=== PATIENT | male | born 1975 | race Caucasian/White ===

== ENCOUNTER → 2016-10-11 | Outpatient (CLI) | payer MEDICARE, MEDICAID ==
[~2016-10-11] MED LIST: CELE20TA PO; TRAZ50TA4 PO
--- NOTE | 2016-10-11 17:15 | REP ---
THORACIC SPINE SERIES: Five views of the thoracic spine are performed in the AP and lateral projections. There is no compression fracture. There is moderate diffuse spurring. There is mild disc space narrowing and subchondral sclerosis at all levels. Posterior elements appear intact. IMPRESSION: Moderate diffuse degenerative changes appearing similar to prior exam of 06/25/2016. Signed by Lloyd Morales MD 10/12/2016 05:35 P
--- NOTE | 2016-10-11 17:17 | REP ---
LUMBAR SPINE, SEVEN VIEWS: HISTORY: Back pain. COMPARISON: 06/25/2016 There is no acute fracture. Flexion and extension views are limited. There is no subluxation. The L3-4 and L4-5 intervertebral discs are decreased in height consistent with disc degeneration. Osteophytes are present on L1 through L4. The facet joints are normal in appearance. There is minimal scoliosis of the lower thoracic and upper lumbar spine convex to the left. IMPRESSION: Degenerative change as described above. Signed by Panfilo Combs MD 10/12/2016 08:59 A
== END ==
LOC: M LAB 15:41
PROVIDERS: ATTEND Physician Assistant Medical
DX: M54.6 Pain in thoracic spine (principal); M54.5 Low back pain; E66.9 Obesity, unspecified; E55.9 Vitamin D deficiency, unspecified; R73.9 Hyperglycemia, unspecified; E78.5 Hyperlipidemia, unspecified

== ENCOUNTER → 2016-10-12 | Outpatient (CLI) | payer MEDICARE, MEDICAID ==
[2016-10-12 08:21] LABS: ALBUMIN 4.2 GM/DL (3.2-5.2); ALBUMIN/GLOBULIN RATIO 1.45 (1.00-1.93); ALKALINE PHOSPHATASE 71 U/L (45-117); ALT/SGPT 59 U/L (12-78); ANION GAP 6 MEQ/L (8-16); AST/SGOT 28 U/L (15-37); BILIRUBIN,TOTAL 0.9 MG/DL (0.2-1.0); BLOOD UREA NITROGEN 18 MG/DL (7-18); CALCIUM LEVEL 8.4 MG/DL (8.5-10.1); CARBON DIOXIDE LEVEL 28 MEQ/L (21-32); CHLORIDE LEVEL 107 MEQ/L (98-107); CHOLESTEROL LEVEL 169 MG/DL (<200); CREATININE FOR GFR 0.69 MG/DL (0.70-1.30); GLOMERULAR FILTRATION RATE > 60.0 (>60); GLUCOSE, FASTING 104 MG/DL (70-105); POTASSIUM SERUM 4.2 MEQ/L (3.5-5.1); SODIUM LEVEL 141 MEQ/L (136-145); TOTAL PROTEIN 7.1 GM/DL (6.4-8.2); TRIGLYCERIDES LEVEL 146 MG/DL (<150)
== END ==
LOC: M LAB 07:17
PROVIDERS: ATTEND Physician Assistant Medical
DX: R73.9 Hyperglycemia, unspecified (principal); E66.9 Obesity, unspecified; E78.5 Hyperlipidemia, unspecified; E55.9 Vitamin D deficiency, unspecified

== ENCOUNTER 2016-11-11 17:21 | Emergency (ER) | payer MEDICARE, MEDICAID ==
[~2016-11-11] VITALS: Ht 165.1 cm; Wt 134.7 kg
[2016-11-11] MEDS ORDERED: ACAM0.05 PO (17:45)
[2016-11-11] MEDS ORDERED: vitamin d (17:47)
[2016-11-11] MEDS ORDERED: Vicodin (17:47)
[2016-11-11] MEDS ORDERED: NAPROXEN 250 MG TAB PO ONE (18:30)
[2016-11-11] MEDS ORDERED: ADACEL/BOOSTRIX VACCINE (DIPHTH/PERTUSS/ACELL/TETANUS)0.5ML SYR (90715) IM ONE (18:30)
[2016-11-11] MEDS ORDERED: AUGMENTIN 875 MG TAB PO ONE (18:30)
[2016-11-11] MEDS ORDERED: NAPR500T PO (18:31)
[2016-11-11] MEDS ORDERED: AUGM875T27 PO (18:31)
[2016-11-11 18:52] VITALS: BP 143/78
== END 2016-11-11 18:54 | disposition home or self-care (01) ==
LOC: M ED 18:20
DX: S50.871A Other superficial bite of right forearm, initial encounter (principal); W54.0XXA Bitten by dog, initial encounter; Y92.009 Unspecified place in unspecified non-institutional (private) residence as the place of occurrence of the external cause; Y93.89 Activity, other specified; Y99.8 Other external cause status; F32.9 Major depressive disorder, single episode, unspecified; Z87.891 Personal history of nicotine dependence; Z79.899 Other long term (current) drug therapy

== ENCOUNTER → 2017-01-24 | Outpatient (REF) | payer MEDICARE, MEDICAID ==
[~2017-01-24] MED LIST changes: +ACAM0.05 PO; +AUGM875T28 PO; +NAPR500T PO; +TRAZ50TA11 PO; -TRAZ50TA4 PO; +Vicodin; +vitamin d
[2017-01-24 15:39] LABS: ANION GAP 13 MEQ/L (8-16); BLOOD UREA NITROGEN 8 MG/DL (7-18); CALCIUM LEVEL 9.2 MG/DL (8.5-10.1); CARBON DIOXIDE LEVEL 19 MEQ/L (21-32); CHLORIDE LEVEL 107 MEQ/L (98-107); CREATININE FOR GFR 0.72 MG/DL (0.70-1.30); GLOMERULAR FILTRATION RATE > 60.0 (>60); GLUCOSE, FASTING 92 MG/DL (70-105); SODIUM LEVEL 139 MEQ/L (136-145)
[2017-01-24 15:45] LABS: POTASSIUM SERUM 4.5 MEQ/L (3.5-5.1)
== END ==
LOC: M LAB REF 13:14
PROVIDERS: ATTEND Nurse Practitioner Family
DX: E55.9 Vitamin D deficiency, unspecified (principal)

== ENCOUNTER → 2017-03-07 | Outpatient (CLI) | payer MEDICARE, MEDICAID ==
[2017-03-07 09:37] LABS: ALBUMIN 3.7 GM/DL (3.2-5.2); ALBUMIN/GLOBULIN RATIO 1.12 (1.00-1.93); ALKALINE PHOSPHATASE 75 U/L (45-117); ALT/SGPT 73 U/L (12-78); AST/SGOT 27 U/L (15-37); BILIRUBIN,DIRECT < 0.1 MG/DL (0.0-0.2); BILIRUBIN,TOTAL 0.3 MG/DL (0.2-1.0)
== END ==
LOC: M LAB 08:13
PROVIDERS: ATTEND Nurse Practitioner Family
DX: F10.20 Alcohol dependence, uncomplicated (principal)

== ENCOUNTER → 2017-06-26 | Outpatient (CLI) | payer MEDICARE, MEDICAID ==
[~2017-06-26] MED LIST changes: +IBUP-1022 PO; +VIVI380I IM
[2017-06-26 11:13] LABS: ALBUMIN 4.3 GM/DL (3.2-5.2); ALBUMIN/GLOBULIN RATIO 1.34 (1.00-1.93); BILIRUBIN,DIRECT 0.3 MG/DL (0.0-0.2); BILIRUBIN,TOTAL 1.5 MG/DL (0.2-1.0); TOTAL PROTEIN 7.5 GM/DL (6.4-8.2)
== END ==
LOC: M LAB 10:29
PROVIDERS: ATTEND Nurse Practitioner Family
DX: F10.20 Alcohol dependence, uncomplicated (principal); Z51.81 Encounter for therapeutic drug level monitoring

== ENCOUNTER 2017-06-29 13:23 | Emergency (ER) | payer MEDICARE, MEDICAID ==
[~2017-06-29] VITALS: Ht 162.6 cm; Wt 133.6 kg
[~2017-06-29 13:23] MED LIST changes: -IBUP-1022 PO; -VIVI380I IM
[2017-06-29] MEDS ORDERED: VIVI380I IM (13:48)
[2017-06-29] MEDS ORDERED: IBUP-1022 PO (15:17)
[2017-06-29] MEDS ORDERED: AUGM875T28 PO (15:17)
[2017-06-29 15:36] VITALS: BP 171/99
== END 2017-06-29 15:37 | disposition home or self-care (01) ==
LOC: M ED 13:23
DX: L60.0 Ingrowing nail (principal)

== ENCOUNTER → 2017-07-30 | Outpatient (REF) | payer MEDICARE, MEDICAID ==
[2017-07-30 14:00] LABS: BASO % 0.4 % (0.0-1.0); EOS % 0.6 % (0.0-3.0); HEMATOCRIT 42.5 % (42.0-52.0); HEMOGLOBIN 14.1 g/dl (14.0-18.0); IMMATURE GRANULOCYTE % 0.4 % (0-0); LYMPH # 1.8 10^3/uL (1.5-4.5); LYMPH % 25.1 % (24.0-44.0); MEAN CORPUSCULAR HEMOGLOBIN 30.9 pg (27.0-33.0); MEAN CORPUSCULAR HGB CONC 33.2 g/dl (32.0-36.5); MEAN CORPUSCULAR VOLUME 93.2 fl (80.0-96.0); MONO # 0.5 10^3/uL (0.0-0.8); MONO % 7.6 % (0.0-5.0); NEUTROPHILS # 4.7 10^3/uL (1.8-7.7); NEUTROPHILS % 65.9 % (36.0-66.0); PLATELET COUNT, AUTOMATED 241 10^3/uL (150-450); RED BLOOD COUNT 4.56 10^6/uL (4.30-6.10); WHITE BLOOD COUNT 7.1 10^3/uL (4.0-10.0)
[2017-07-30 14:29] LABS: ALBUMIN/GLOBULIN RATIO 1.33 (1.00-1.93); ALKALINE PHOSPHATASE 74 U/L (45-117); ALT/SGPT 53 U/L (12-78); ANION GAP 7 MEQ/L (8-16); AST/SGOT 24 U/L (7-37); BILIRUBIN,TOTAL 0.7 MG/DL (0.2-1.0); BLOOD UREA NITROGEN 8 MG/DL (7-18); CALCIUM LEVEL 8.7 MG/DL (8.5-10.1); CARBON DIOXIDE LEVEL 27 MEQ/L (21-32); CHLORIDE LEVEL 107 MEQ/L (98-107); CHOLESTEROL LEVEL 166 MG/DL (<200); CHOLESTEROL RISK RATIO 4.611 (<5); CREATININE FOR GFR 0.74 MG/DL (0.70-1.30); GLOMERULAR FILTRATION RATE > 60.0 (>60); GLUCOSE, FASTING 124 MG/DL (70-100); HDL CHOLESTEROL 36 MG/DL (>40); LDL CHOLESTEROL 103.8 MG/DL (<100); NON-HDL-C 130 MG/DL; SODIUM LEVEL 141 MEQ/L (136-145); TRIGLYCERIDES LEVEL 131 MG/DL (<150)
[2017-07-30 14:49] LABS: ESTIMATED AVERAGE GLUCOSE 134 MG/DL (60-110); HEMOGLOBIN A1c 6.3 %
[2017-07-31 11:38] LABS: HIV 1&2 SCREEN CENTAUR NEGATIVE (NEGATIVE)
[2017-07-31 12:01] LABS: HEPATITIS B SURFACE ANTIBODY NEGATIVE (POSITIVE)
== END ==
LOC: M LAB REF 13:41
DX: R03.0 Elevated blood-pressure reading, without diagnosis of hypertension (principal); R73.03 Prediabetes; E55.9 Vitamin D deficiency, unspecified
CPT/HCPCS: 84443

== ENCOUNTER → 2018-02-21 | Outpatient (CLI) | payer OTHER, MEDICAID, MEDICARE | LOC: M SLEEP 18:51 | DX: G47.30 Sleep apnea, unspecified (principal) | CPT/HCPCS: 95810 ==

== ENCOUNTER → 2018-04-01 | Outpatient (CLI) | payer MEDICARE, OTHER | LOC: M SLEEP 18:46 | DX: G47.33 Obstructive sleep apnea (adult) (pediatric) (principal) | CPT/HCPCS: 95811 ==

== ENCOUNTER 2018-07-18 10:49 | Emergency (ER) | payer MEDICARE, MEDICAID ==
[~2018-07-18] VITALS: Ht 165.1 cm; Wt 135.6 kg
[~2018-07-18 10:49] MED LIST changes: +IBUP-1022 PO; +NAPR-50 PO; -NAPR500T PO; +TRAZ-160 PO; -TRAZ50TA11 PO; +VIVI380I IM
[2018-07-18] MEDS ORDERED: KETOROLAC 30 MG/ML VIAL (J1885) IV ONE (12:45)
[2018-07-18] MEDS ORDERED: NS 1,000 ML IV ONE (12:45)
[2018-07-18 12:59] LABS: BASO # 0.1 10^3/uL (0.0-0.2); BASO % 0.7 % (0.0-1.0); EOS # 0.1 10^3/uL (0.0-0.50); EOS % 0.7 % (0.0-3.0); HEMATOCRIT 46.1 % (42.0-52.0); HEMOGLOBIN 15.4 g/dl (13.5-17.5); LYMPH # 2.6 10^3/uL (1.5-4.5); LYMPH % 29.4 % (24.0-44.0); MEAN CORPUSCULAR HEMOGLOBIN 30.9 pg (27.0-33.0); MEAN CORPUSCULAR HGB CONC 33.4 g/dl (32.0-36.5); MEAN CORPUSCULAR VOLUME 92.6 fl (80.0-96.0); MONO # 0.8 10^3/uL (0.0-0.8); NEUTROPHILS # 5.2 10^3/uL (1.8-7.7); NEUTROPHILS % 59.5 % (36.0-66.0); PLATELET COUNT, AUTOMATED 228 10^3/uL (150-450); RED BLOOD COUNT 4.98 10^6/uL (4.30-6.10); WHITE BLOOD COUNT 8.8 10^3/uL (4.0-10.0)
--- NOTE | 2018-07-18 13:09 | REP ---
CT abdomen and pelvis without IV or oral contrast: History: Right flank pain. Red blood cells on urinalysis. Question kidney stone. No comparison study. CT findings: Pulmonary digital warehouse examiner radiograph shows a normal bowel gas pattern. The lung bases are clear. There is moderate diffuse fatty infiltration of the liver. There are two large calcified gallstones in the gallbladder. Gallbladder is otherwise contracted. The largest stone in the gallbladder measures 21 mm in greatest diameter. No pericholecystic fluid or wall thickening is seen. No biliary ductal dilation is apparent. The pancreas is unremarkable. No hydronephrosis is noted on either side. There is an intrarenal calculus at the upper pole of the right kidney measuring 2 mm in diameter. Neither ureter is dilated. The no bladder calculus is seen. There are 1-2 dystrophic calcifications in the prostate. Seminal vesicles and urinary bladder are unremarkable. No pelvic mass or adenopathy is observed. Small and large bowel loops are unremarkable. Normal appendix is seen in the right lower quadrant. Normal caliber aorta. No bony destructive lesion is seen. Impression: 2 mm intrarenal calculus upper pole right kidney. No hydronephrosis seen. No other urinary tract calculus noted. Calcified gallstones. Fatty infiltration of the liver. Electronically Signed by Van Lima MD 07/18/2018 03:13 P
[2018-07-18 13:23] LABS: ALBUMIN 4.1 GM/DL (3.2-5.2); ALT/SGPT 59 U/L (12-78); AMYLASE 69 U/L (25-115); BILIRUBIN,DIRECT 0.1 MG/DL (0.0-0.2); BILIRUBIN,TOTAL 0.5 MG/DL (0.2-1.0); BLOOD UREA NITROGEN 13 MG/DL (7-18); CALCIUM LEVEL 8.9 MG/DL (8.5-10.1); CARBON DIOXIDE LEVEL 25 MEQ/L (21-32); CHLORIDE LEVEL 106 MEQ/L (98-107); CREATININE FOR GFR 0.75 MG/DL (0.70-1.30); GLOMERULAR FILTRATION RATE > 60.0 (>60); GLUCOSE, FASTING 94 MG/DL (70-100); LIPASE 229 U/L (73-393); POTASSIUM SERUM 4.2 MEQ/L (3.5-5.1); SODIUM LEVEL 139 MEQ/L (136-145); TOTAL PROTEIN 7.3 GM/DL (6.4-8.2)
[2018-07-18] MEDS ORDERED: KETO10TAB PO (14:04)
[2018-07-18 14:11] VITALS: BP 111/68
--- NOTE | 2018-07-18 14:19 | REP ---
RIGHT UPPER QUADRANT ULTRASOUND: 07/18/2018. CLINICAL HISTORY: Right-sided back pain. Gallstones on CT abdomen/pelvis earlier today. COMPARISON: CT, 07/18/2018. FINDINGS: Liver is homogeneous and hyperechoic throughout consistent with diffuse fatty infiltration, as noted on CT. It is difficult to evaluate because of body habitus considerations. No gross mass or biliary dilatation. No obvious ascites. The gallbladder is contracted, but its wall thickness is normal at 2 mm. Echogenic shadowing stones evident with a CUONG sign ([id number]) of a contracted gallbladder filled with stones. There is no pericholecystic fluid. The pancreas is also difficult to evaluate with only limited evaluation due to body habitus considerations as portions seen are somewhat hyperechoic. Common duct is 3.3 mm without a filling defect. The right kidney is 11.3 x 4.7 x 5.3 cm without hydronephrosis or visible stone. IMPRESSION: 1. Diffuse fatty infiltration liver without gross hepatic mass, biliary dilatation, nor adjacent ascites. 2. Gallbladder contracted around multiple calcified gallstones which fill it. No abnormal wall thickening or pericholecystic fluid, however. 3. Common duct 3.3 mm without a filling defect with limited evaluation of the pancreas, those segments seen grossly normal. 4. Right kidney without stone, mass, or hydronephrosis. Electronically Signed by Janak Blanco MD 07/18/2018 05:01 P
== END 2018-07-18 14:29 | disposition home or self-care (01) ==
LOC: M ED 10:49
DX: K80.20 Calculus of gallbladder without cholecystitis without obstruction (principal); N20.0 Calculus of kidney; F33.9 Major depressive disorder, recurrent, unspecified; F10.10 Alcohol abuse, uncomplicated
CPT/HCPCS: 74176; 76705; 80048; 80076; 81001; 82150; 83690; 85025; 96361; 96374; 99284; J1885

== ENCOUNTER 2018-08-05 15:02 | Emergency (ER) | payer MEDICARE, MEDICAID ==
[~2018-08-05] VITALS: Ht 167.6 cm; Wt 139.9 kg
[~2018-08-05 15:02] MED LIST changes: +KETO10TAB PO
[2018-08-05] MEDS ORDERED: IBUP80TA (15:08)
[2018-08-05] MEDS ORDERED: BACL10TA2 (15:08)
[2018-08-05] MEDS ORDERED: LISI10TA4 (15:08)
[2018-08-05] MEDS ORDERED: PANTOPRAZOLE 40MG INJ (PROTONIX) (C9113) IV ONE (16:30)
[2018-08-05 16:55] LABS: BASO # 0.1 10^3/uL (0.0-0.2); BASO % 0.5 % (0.0-1.0); EOS # 0.1 10^3/uL (0.0-0.50); EOS % 0.6 % (0.0-3.0); HEMATOCRIT 42.1 % (42.0-52.0); HEMOGLOBIN 14.1 g/dl (13.5-17.5); LYMPH # 2.9 10^3/uL (1.5-4.5); LYMPH % 29.5 % (24.0-44.0); MEAN CORPUSCULAR HEMOGLOBIN 31.2 pg (27.0-33.0); MEAN CORPUSCULAR HGB CONC 33.5 g/dl (32.0-36.5); MEAN CORPUSCULAR VOLUME 93.1 fl (80.0-96.0); MONO # 0.8 10^3/uL (0.0-0.8); MONO % 8.5 % (0.0-5.0); NEUTROPHILS # 5.8 10^3/uL (1.8-7.7); NEUTROPHILS % 60.2 % (36.0-66.0); PLATELET COUNT, AUTOMATED 239 10^3/uL (150-450); RED BLOOD COUNT 4.52 10^6/uL (4.30-6.10); WHITE BLOOD COUNT 9.7 10^3/uL (4.0-10.0)
[2018-08-05 17:18] LABS: ALBUMIN 4.2 GM/DL (3.2-5.2); ALT/SGPT 51 U/L (12-78); BILIRUBIN,DIRECT 0.2 MG/DL (0.0-0.2); BILIRUBIN,TOTAL 0.6 MG/DL (0.2-1.0); BLOOD UREA NITROGEN 13 MG/DL (7-18); CALCIUM LEVEL 8.8 MG/DL (8.5-10.1); CARBON DIOXIDE LEVEL 28 MEQ/L (21-32); CHLORIDE LEVEL 105 MEQ/L (98-107); CREATININE FOR GFR 0.68 MG/DL (0.70-1.30); GLOMERULAR FILTRATION RATE > 60.0 (>60); GLUCOSE, FASTING 92 MG/DL (70-100); LIPASE 171 U/L (73-393); POTASSIUM SERUM 3.9 MEQ/L (3.5-5.1); SODIUM LEVEL 140 MEQ/L (136-145); TOTAL PROTEIN 7.4 GM/DL (6.4-8.2)
[2018-08-05 17:31] VITALS: BP 135/80
== END 2018-08-05 17:53 | disposition home or self-care (01) ==
LOC: M ED 15:02
DX: K80.70 Calculus of gallbladder and bile duct without cholecystitis without obstruction (principal); I10 Essential (primary) hypertension; F32.9 Major depressive disorder, single episode, unspecified
CPT/HCPCS: 80048; 80076; 81001; 83690; 85025; 96374; 99284; C9113

== ENCOUNTER → 2018-08-18 | Outpatient (REF) | payer MEDICARE, MEDICAID ==
[~2018-08-18] MED LIST changes: +BACL10TA2 PO; +HYDR25TAB PO; +IBUP80TA PO; +LISI10TA4 PO; +TYLE500T78 PO
[2018-08-18 14:05] LABS: BASO % 0.6 % (0.0-1.0); EOS # 0.2 10^3/uL (0.0-0.50); EOS % 2.8 % (0.0-3.0); HEMATOCRIT 45.6 % (42.0-52.0); HEMOGLOBIN 14.7 g/dl (13.5-17.5); LYMPH # 2.8 10^3/uL (1.5-4.5); MEAN CORPUSCULAR HEMOGLOBIN 30.8 pg (27.0-33.0); MEAN CORPUSCULAR HGB CONC 32.2 g/dl (32.0-36.5); MEAN CORPUSCULAR VOLUME 95.6 fl (80.0-96.0); MONO # 0.5 10^3/uL (0.0-0.8); MONO % 7.9 % (0.0-5.0); NEUTROPHILS # 3.1 10^3/uL (1.8-7.7); NEUTROPHILS % 46.4 % (36.0-66.0); PLATELET COUNT, AUTOMATED 241 10^3/uL (150-450); RED BLOOD COUNT 4.77 10^6/uL (4.30-6.10); WHITE BLOOD COUNT 6.7 10^3/uL (4.0-10.0)
[2018-08-18 14:13] LABS: ALBUMIN 4.4 GM/DL (3.2-5.2); ALT/SGPT 43 U/L (12-78); BILIRUBIN,TOTAL 0.4 MG/DL (0.2-1.0); BLOOD UREA NITROGEN 12 MG/DL (7-18); CARBON DIOXIDE LEVEL 29 MEQ/L (21-32); CHLORIDE LEVEL 106 MEQ/L (98-107); CREATININE FOR GFR 0.63 MG/DL (0.70-1.30); GLOMERULAR FILTRATION RATE > 60.0 (>60); GLUCOSE, FASTING 99 MG/DL (70-100); POTASSIUM SERUM 4.4 MEQ/L (3.5-5.1); SODIUM LEVEL 140 MEQ/L (136-145); TOTAL PROTEIN 7.4 GM/DL (6.4-8.2)
[2018-08-18 14:15] LABS: PROTHROMBIN TIME 13.3 SECONDS (12.1-14.4)
== END ==
LOC: M LAB REF 13:39
PROVIDERS: ATTEND Nurse Practitioner Adult Health
DX: Z01.818 Encounter for other preprocedural examination (principal); Z79.01 Long term (current) use of anticoagulants

== ENCOUNTER 2018-08-29 08:07 | Day surgery (SDC) | payer MEDICARE, MEDICAID ==
[~2018-08-29] VITALS: Ht 162.6 cm; Wt 132.0 kg
[2018-08-29] VITALS (8 sets, daily range): BP systolic 138–167; BP diastolic 85–96
[~2018-08-29 08:07] MED LIST changes: +AMPICILLIN SOD/SULBACTAM SOD 3 GM in D5W MINI-BAG PLUS 100 ML IV ONE; +LR 1,000 ML IV SCH; -NAPR-50 PO; +NAPR-837 PO
[2018-08-29] MEDS ORDERED: dexameTHASONE 4 MG/ML 1ML VIAL (J1100) As Ordered ONE (09:49)
[2018-08-29] MEDS ORDERED: PROPOFOL 200 MG/20 ML VIAL As Ordered ONE ×2 (09:49→11:55)
[2018-08-29] MEDS ORDERED: LIDOCAINE 2% INJ 100 MG/5 ML SDV (FOR ANES.) As Ordered ONE (09:49)
[2018-08-29] MEDS ORDERED: ONDANSETRON 4MG/2ML VIAL (J2405) As Ordered ONE (09:49)
[2018-08-29] MEDS ORDERED: ROCURONIUM BROMIDE 50 MG/5 ML VIAL As Ordered ONE (09:49)
[2018-08-29] MEDS ORDERED: fentaNYL 100 MCG/2 ML INJECTION (J3010) As Ordered ONE ×2 (09:50→12:14)
[2018-08-29] MEDS ORDERED: MIDAZOLAM INJ 2 MG/2 ML VIAL (J2250) As Ordered ONE (09:50)
[2018-08-29] MEDS ORDERED: LIDOCAINE 1% SDV INJ 30 ML VIAL As Ordered ONE (10:40)
[2018-08-29] MEDS ORDERED: BUPIVACAINE HCL 0.25% 30 ML VIAL As Ordered ONE (10:41)
[2018-08-29] MEDS ORDERED: KETOROLAC 60 MG/2 ML VIAL (J1885) As Ordered ONE (11:36)
[2018-08-29] MEDS ORDERED: SUGAMMADEX SODIUM 500 MG/5 ML VIAL (BRIDION) As Ordered ONE (11:36)
--- NOTE | 2018-08-29 12:32 | ROOPDOC ---
[facility] Report Of Operation Report of Operation DATE OF PROCEDURE: 08/29/18 PREPROCEDURE DIAGNOSES: Biliary Colic, Cholelithiasis. POSTPROCEDURE DIAGNOSES: same. PROCEDURE: Laparoscopic Cholecystectomy. SURGEON: Stanton Echeverria MD HARM REDUCTION WORKER: MD Dr. Theresa Glez provided assistance with placement of trocars, retraction of the gallbladder to facilitate dissection ANESTHESIA: General Anesthesia. ESTIMATED BLOOD LOSS: Approximately 20 mL. COMPLICATIONS: none. REMARKS: 43 M, morbidly obese with BMI of 50, with intermittent epigastric, right upper quadrant pain believed to be secondary to presence of gallstones causing biliary colic attacks.. PROCEDURE NOTE: enlarged liver, fatty replaced, distended thick walled gallbladder with moderate amount of fatty deposition on the wall.. DESCRIPTION OF PROCEDURE: Patient was given a dose Unasyn 3 g IV preoperatively for prophylaxis. He was brought to the operating room, laid supine on the table, compression boots p laced for DVT prophylaxis. General endotracheal anesthesia started. His abdomen then prepped and draped in usual sterile fashion. Surgical timeout was performed prior to confirm right procedure, right patient identification and other necessary information prior to starting surgery. Entry into the abdomen done through an incision a few centimeters above the umbilical cleft. A Veress needle was inserted with a controlled fashion. CO2 insufflation started to pressure 15 mmHg. Using the same incision a 5 mm V isiport was placed under direct vision laparoscope. The area underneath the insertion site was inspected and no injury found. He was then placed in steep reverse Trendelenburg. His right side was tilted up to further expose the gallbladder. Under direct vision a 11 mm epigastric port and Two 5 mm working ports placed along the right subcostal line. Operative findings: His liver is noted to be smooth in contour no nodularities or lesions found. The size of the liver is moderately enlarged with the fatty replaced appearance . His gallbladder appears distended with multiple stones that are mobile in the neck and mid body of his gallbladder. The wall overall appears mildly thickened with thick fatty adipose tissue deposition especially in the lower pole of the gallbladder around the hepatocystic triangle The fundus of the gallbladder was grasped and the gallbladder is elevated superiorly exposing the neck of the gallbladder. The peritoneum overlying the area is opened up and dissected free both anteriorly and posteriorly to help with retraction of the gallbladder. The hepatocystic triangle was approached and dissected using a [place] and instrument. The cystic duct was identified coming off from the neck of the gallbladder. This was circumferentially dissected. The cystic artery was identified in its usual position medially behind a small lymph node of [place]ot. This was similarly circumferentially dissected off surrounding adipose tissue. We continued posterior dissection proximally at the neck of gallbladder to dissect the posterior wall of the gallbladder off the liver plate until a critical view of safety was achieved whereby only the previously identified duct and artery coursing through the neck the gallbladder. There was some bleeding behind the gallbladder. At this point the the cystic duct was most accessible and this was clipped 4 times and divided. We were then able to expose the course of the cystic artery better. After again checking her anatomy and verifying that the previously identified cystic duct, this was also clipped 4 times and divided. The rest of the gallbladder was then dissected free of the gallbladder bed using Bovie cautery. There was minimal bleeding at the posterior gallbladder attachments to the liver plate. This was easily controlled with Bovie cautery. The number appears quite mushy and easy to break through the thin capsule and cause some slight bleeding. The gallbladder was then placed in an Endo Catch bag and retrieved outside through the epigastric port site. After re-insufflation and inspected the clips and noted this to be in place. No further bleeding noted. No bile leakage noted. The abdomen was deflated all ports were removed. The epigastric fascial defect repaired with 0 Vicryl in a mattress fashion. Rest of the skin incisions closed with 4-0 Monocryl in subcuticular fashion. Steri- Strips and gauze dressings were placed, the wound. Patient was informed they awakened, extubated and brought to recovery room stable STANTON ECHEVERRIA MD Aug 29, 2018 12:31
[2018-08-29] MEDS ORDERED: ESMOLOL INJ 100MG/10ML VIAL As Ordered ONE (12:34)
[2018-08-29] MEDS ORDERED: LR 1,000 ML IV SCH (13:00)
[2018-08-29] MEDS ORDERED: NORCO, ANEXSIA 5/325MG TABLET (HYDROcodone/ACETAMINOPHEN) PO PRN ×2 (13:00)
[2018-08-29] MEDS ORDERED: HYDROMORPHONE HCL 0.5 MG/ 0.5 ML SYRINGE (J1170 PER 1) IV PRN (13:00)
[2018-08-29] MEDS ORDERED: fentaNYL 100 MCG/2 ML INJECTION (J3010) IV PRN (13:00)
[2018-08-29] MEDS ORDERED: ONDANSETRON 4MG/2ML VIAL (J2405) IV PRN ×2 (13:00)
[2018-08-29] MEDS: PERCOCET 5MG/325MG TAB PO PRN ×2 (13:54→14:53)
[2018-08-29] MEDS ORDERED: PERCOCET 5MG/325MG TAB As Ordered ONE (14:51)
[2018-08-29] MEDS: KETOROLAC 30 MG/ML VIAL (J1885) IV PRN (21:18)
[2018-08-30 02:00] VITALS: BP 136/82
[2018-08-30 06:00] VITALS: BP 134/82
[2018-08-30] MEDS: KETOROLAC 30 MG/ML VIAL (J1885) IV PRN (07:52)
[2018-08-30] MEDS ORDERED: HYDR-3715 PO (10:14)
--- NOTE | 2018-08-30 13:58 | IPNPDOC ---
Subjective General Date/Time Seen The patient was seen on 08/30/18 at 13:42. Subject Chief Complaint/History The patient is a 43-year-old male admitted with a reason for visit of Gallstones. Patient is s/p laparoscopic cholecystectomy for cholelithiasis.He states that he is feeling good with no significant abdominal pain. He was started on regular diet 08/29 afternoon after the cholecystecomy, and reported tolerating PO regular diet well. He denied breathing difficulties and reported using own CPAP machine. Current Medications Current Medications Current Medications Acetaminophen/ Hydrocodone Bitart (Clear[place], Anexsia 5/325) 1 tab Q4HP PRN PO PAIN; Start 08/29/18 at 13:00; Stop 08/30/18 at 12:04; Status DC Acetaminophen/ Hydrocodone Bitart ([place], Anexsia 5/325) 2 tab Q4HP PRN PO PAIN; Start 08/29/18 at 13:00; Stop 08/30/18 at 12:04; Status DC Fentanyl Citrate (Sublimaze) 25 mcg Q5MP PRN IV MODERATE PAIN (PS 4-7); Start 08/29/18 at 13:00; Stop 08/29/18 at 14:00; Status DC Hydromorphone HCl (Dilaudid) 0.2 mg Q5MP PRN IV MODERATE/SEVERE PAIN (PS 5-10); Start 08/29/18 at 13:00; Stop 08/29/18 at 14:00; Status DC Ketorolac Tromethamine (ToRADol) 30 mg Q6H PRN IV PAIN Last administered on 08/30/18at 07:52; Start 08/29/18 at 13:00; Stop 08/30/18 at 12:04; Status DC Lactated Ringer's 1,000 ml @ 100 mls/hr Q10H IV Last administered on 08/29/18at 09:56; Start 08/29/18 at 07:00; Stop 08/29/18 at 12:55; Status DC Lactated Ringer's 1,000 ml @ 100 mls/hr Q10H IV ; Start 08/29/18 at 13:00; Stop 08/29/18 at 14:00; Status DC Ondansetron HCl (ZOFRAN INJection) 4 mg Q4HP PRN IV NAUSEA OR VOMITING; Start 08/29/18 at 13:00; Stop 08/29/18 at 14:00; Status DC Ondansetron HCl (ZOFRAN INJection) 4 mg Q6H PRN IV NAUSEA OR VOMITING; Start 08/29/18 at 13:00; Stop 08/30/18 at 12:04; Status DC Oxycodone/ Acetaminophen (Percocet 5mg/ 325mg Tablet) 1 tab ASDIRECTED PRN PO MILD/MODERATE PAIN (PS 1-7) Last administered on 08/29/18at 14:53; Start 08/29/18 at 13:00; Stop 08/29/18 at 14:00; Status DC Allergies Coded Allergies: No Known Drug Allergy (Verified Allergy, Unknown, 07/28/15) Objective Physical Examination Examination GENERAL APPEARANCE:Patient seen, obese, laying in bed, awake, alert, and oriented. Cooperative. Comfortable, in no acute distress. SKIN: Warm and moist. HEENT: Normocephalic, atraumatic. [place] palpebral conjunctiva, anicteric sclerae. Lips and mucosa appear moist. NECK: Supple, no thyromegaly. No obvious jugular venous distention. LUNGS: Clear to auscultation bilaterally. No wheezing appreciated. HEART: No chest wall abnormalities. Regular rate and rhythm with no murmurs appreciated. ABDOMEN: Abdomen is soft, nondistended. No noticeable guarding. Laparoscopic incisions without obvious signs of infections. EXTREMITIES: Extremities have no deformities. No obvious edema noted. Vital Signs Vital Signs Date Time Temp Pulse Resp B/P (MAP) Pulse Ox O2 Delivery O2 Flow Rate FiO2 08/30/18 06:00 96.9 70 16 134/82 (99) 98 08/29/18 12:53 2 I&Os I&O- Last 24 Hours up to 6 AM 08/30/18 06:00 Intake Total 2615 ml Output Total 0 ml Balance 2615 ml Impression Cholelithiasis with biliary colic s/p laparoscopic cholecystectomy. Patient appears to be comfortable and afebrile. He is tolerating PO regular diet well. Patient may go home today, and he will follow up with Dr. Echeverria as scheduled. Patient will be d/c home with all home meds continued. It was noted that patient has [place] 5/325 already, and he may use those for pain control but no new prescriptions will be sent. Patient may shower. Instructions of not removing dressings and steri strips until follow-up appointment was given to patient. Plan / VTE VTE Prophylaxis Ordered?: No VTE Exclusion Mechanical Proph: Low Risk for VTE DILLON BASS DO Aug 30, 2018 13:58 AKSHAT ECHEVERRIA MD Sep 24, 2018 07:34
== END 2018-08-30 11:56 | disposition home or self-care (01) ==
LOC: M SDC 08:07 → M MSPAV 15:04 → M SDC 08-30 11:56
PROVIDERS: ATTEND Surgery
DX: K80.18 Calculus of gallbladder with other cholecystitis without obstruction (principal); I10 Essential (primary) hypertension; F41.9 Anxiety disorder, unspecified; F32.9 Major depressive disorder, single episode, unspecified; M12.9 Arthropathy, unspecified; R29.898 Other symptoms and signs involving the musculoskeletal system; M54.9 Dorsalgia, unspecified; F81.9 Developmental disorder of scholastic skills, unspecified; G47.33 Obstructive sleep apnea (adult) (pediatric); E66.01 Morbid (severe) obesity due to excess calories; Z68.43 Body mass index [BMI] 50.0-59.9, adult; Z79.899 Other long term (current) drug therapy; Z87.891 Personal history of nicotine dependence
CPT/HCPCS: 47562; 88304; J1100; J1885; J2250; J2405; J3010

== ENCOUNTER 2018-09-23 14:48 | Emergency (ER) | payer MEDICARE, MEDICAID ==
[~2018-09-23] VITALS: Ht 165.1 cm; Wt 126.9 kg
[2018-09-23 14:48] VITALS: BP 160/90
[~2018-09-23 14:48] MED LIST changes: -AMPICILLIN SOD/SULBACTAM SOD 3 GM in D5W MINI-BAG PLUS 100 ML IV ONE; -LR 1,000 ML IV SCH; +NAPR-50 PO; -NAPR-837 PO; +NORCOTAB PO
[2018-09-23] MEDS ORDERED: MECL-68 PO (15:49)
[2018-09-23] MEDS ORDERED: FLON1SPR NARES (15:49)
[2018-09-23] MEDS ORDERED: MECLIZINE 25 MG TABLET PO ONE (16:00)
== END 2018-09-23 16:05 | disposition home or self-care (01) ==
LOC: M ED 14:48
DX: H65.03 Acute serous otitis media, bilateral (principal); I10 Essential (primary) hypertension; Z87.891 Personal history of nicotine dependence; Z79.899 Other long term (current) drug therapy

== ENCOUNTER → 2018-12-18 | Outpatient (REF) | payer MEDICARE, MEDICAID ==
[~2018-12-18] MED LIST changes: +FLON1SPR NARES; +HYDR-3715 PO; +MECL-68 PO; -NAPR-50 PO; +NAPR-837 PO; -NORCOTAB PO; -TRAZ-160 PO; +TRAZ-252 PO
[2018-12-18 17:45] LABS: ALBUMIN 3.9 GM/DL (3.2-5.2); ALT/SGPT 61 U/L (12-78); BILIRUBIN,TOTAL 0.6 MG/DL (0.2-1.0); BLOOD UREA NITROGEN 12 MG/DL (7-18); CARBON DIOXIDE LEVEL 28 MEQ/L (21-32); CHLORIDE LEVEL 105 MEQ/L (98-107); CHOLESTEROL LEVEL 176 MG/DL (<200); CREATININE FOR GFR 0.78 MG/DL (0.70-1.30); GLOMERULAR FILTRATION RATE > 60.0 (>60); GLUCOSE, FASTING 116 MG/DL (70-100); HDL CHOLESTEROL 44 MG/DL (>40); LDL CHOLESTEROL 110 MG/DL (<100); NON-HDL-C 132 MG/DL; POTASSIUM SERUM 4.2 MEQ/L (3.5-5.1); SODIUM LEVEL 140 MEQ/L (136-145); TOTAL PROTEIN 7.4 GM/DL (6.4-8.2); TRIGLYCERIDES LEVEL 108 MG/DL (<150)
[2018-12-18 18:01] LABS: HEMOGLOBIN A1c 5.9 %
== END ==
LOC: M LAB REF 17:02
PROVIDERS: ATTEND Nurse Practitioner Adult Health
DX: E66.9 Obesity, unspecified (principal); E78.5 Hyperlipidemia, unspecified; R73.03 Prediabetes; I10 Essential (primary) hypertension

== ENCOUNTER → 2019-02-26 | Outpatient (REF) | payer MEDICARE, MEDICAID ==
[~2019-02-26] MED LIST changes: -MECL-68 PO; +MECL1TAB31 PO
[2019-02-26 12:06] LABS: ALBUMIN 3.9 GM/DL (3.2-5.2); ALT/SGPT 42 U/L (12-78); BLOOD UREA NITROGEN 10 MG/DL (7-18); CALCIUM LEVEL 9.3 MG/DL (8.5-10.1); CARBON DIOXIDE LEVEL 25 MEQ/L (21-32); CHLORIDE LEVEL 109 MEQ/L (98-107); CHOLESTEROL LEVEL 151 MG/DL (<200); CHOLESTEROL RISK RATIO 3.973 (<5); CREATININE FOR GFR 0.68 MG/DL (0.70-1.30); GLOMERULAR FILTRATION RATE > 60.0 (>60); GLUCOSE, FASTING 98 MG/DL (70-100); HDL CHOLESTEROL 38 MG/DL (>40); LDL CHOLESTEROL 88 MG/DL (<100); NON-HDL-C 113 MG/DL; POTASSIUM SERUM 4.4 MEQ/L (3.5-5.1); SODIUM LEVEL 140 MEQ/L (136-145); TOTAL PROTEIN 7.4 GM/DL (6.4-8.2); TRIGLYCERIDES LEVEL 126 MG/DL (<150)
[2019-02-26 13:15] LABS: HEMOGLOBIN A1c 6.9 %
== END ==
LOC: M LAB REF 11:30
PROVIDERS: ATTEND Family Medicine
DX: E88.81 Metabolic syndrome and other insulin resistance (principal); I10 Essential (primary) hypertension; R73.03 Prediabetes

== ENCOUNTER → 2019-06-09 | Outpatient (REF) | payer MEDICARE, MEDICAID ==
[~2019-06-09] MED LIST changes: +MECL-68 PO; -MECL1TAB31 PO
[2019-06-09 17:32] LABS: ALT/SGPT 46 U/L (12-78); BILIRUBIN,TOTAL 0.4 MG/DL (0.2-1.0); BLOOD UREA NITROGEN 12 MG/DL (7-18); CALCIUM LEVEL 9.4 MG/DL (8.5-10.1); CARBON DIOXIDE LEVEL 28 MEQ/L (21-32); CHLORIDE LEVEL 106 MEQ/L (98-107); CHOLESTEROL LEVEL 149 MG/DL (<200); CREATININE FOR GFR 0.74 MG/DL (0.70-1.30); GLOMERULAR FILTRATION RATE > 60.0 (>60); GLUCOSE, FASTING 99 MG/DL (70-100); HDL CHOLESTEROL 47 MG/DL (>40); LDL CHOLESTEROL 87 MG/DL (<100); NON-HDL-C 102 MG/DL; POTASSIUM SERUM 4.1 MEQ/L (3.5-5.1); SODIUM LEVEL 140 MEQ/L (136-145); TOTAL PROTEIN 7.3 GM/DL (6.4-8.2); TRIGLYCERIDES LEVEL 77 MG/DL (<150)
[2019-06-09 18:17] LABS: HEMOGLOBIN A1c 6.3 %
== END ==
LOC: M LAB REF 16:33
PROVIDERS: ATTEND Family Medicine
DX: E11.9 Type 2 diabetes mellitus without complications (principal); E88.81 Metabolic syndrome and other insulin resistance

== ENCOUNTER 2019-08-22 12:30 | Emergency (ER) | payer MEDICARE, MEDICAID ==
[~2019-08-22] VITALS: Ht 165.1 cm; Wt 128.0 kg
[~2019-08-22 12:30] MED LIST changes: -MECL-68 PO; +MECL1TAB31 PO
[2019-08-22] MEDS ORDERED: TRAZ-257 PO (12:43)
[2019-08-22] MEDS ORDERED: METF-791 PO (12:43)
[2019-08-22] MEDS ORDERED: VIVI380I IM (12:43)
[2019-08-22] MEDS ORDERED: ACETAMINOPHEN 325 MG TAB PO ONE (14:15)
[2019-08-22] MEDS ORDERED: KETOROLAC 60 MG/2 ML VIAL (J1885) IM ONE (14:15)
[2019-08-22] MEDS ORDERED: MM S100C PO (14:50)
[2019-08-22] MEDS ORDERED: ANUS2.5C2 TOP (14:50)
[2019-08-22] MEDS ORDERED: KETO10TAB PO (14:52)
[2019-08-22 15:06] VITALS: BP 130/65
== END 2019-08-22 15:07 | disposition home or self-care (01) ==
LOC: M ED 12:30
DX: K64.8 Other hemorrhoids (principal); K62.5 Hemorrhage of anus and rectum; F17.210 Nicotine dependence, cigarettes, uncomplicated; Z79.899 Other long term (current) drug therapy
CPT/HCPCS: 96372; 99283; J1885

== ENCOUNTER → 2019-09-08 | Outpatient (REF) | payer MEDICARE, MEDICAID ==
[~2019-09-08] MED LIST changes: +ANUS2.5C2 TOP; +METF-791 PO; +MM S100C PO; +TRAZ-257 PO
[2019-09-08 17:24] LABS: HEMOGLOBIN A1c 5.9 %
== END ==
LOC: M LAB REF 12:26
PROVIDERS: ATTEND Nurse Practitioner Adult Health
DX: E11.9 Type 2 diabetes mellitus without complications (principal)

== ENCOUNTER → 2020-02-12 | Outpatient (REF) | payer MEDICARE, MEDICAID ==
[~2020-02-12] MED LIST changes: -METF-791 PO; +METF-838 PO
[2020-03-29 12:32] LABS: ALBUMIN 3.7 GM/DL (3.2-5.2); ALT/SGPT 33 U/L (12-78); BILIRUBIN,TOTAL 0.3 MG/DL (0.2-1.0); BLOOD UREA NITROGEN 15 MG/DL (7-18); CALCIUM LEVEL 8.4 MG/DL (8.5-10.1); CARBON DIOXIDE LEVEL 29 MEQ/L (21-32); CHLORIDE LEVEL 110 MEQ/L (98-107); CHOLESTEROL LEVEL 161 MG/DL (<200); CHOLESTEROL RISK RATIO 4.735 (<5); CREATININE FOR GFR 0.84 MG/DL (0.70-1.30); GLOMERULAR FILTRATION RATE > 60.0 (>60); GLUCOSE, FASTING 90 MG/DL (70-100); HDL CHOLESTEROL 34 MG/DL (>40); HEMOGLOBIN A1c 5.8 %; LDL CHOLESTEROL 88 MG/DL (<100); NON-HDL-C 127 MG/DL; POTASSIUM SERUM 3.9 MEQ/L (3.5-5.1); SODIUM LEVEL 143 MEQ/L (136-145); TOTAL PROTEIN 6.9 GM/DL (6.4-8.2); TRIGLYCERIDES LEVEL 195 MG/DL (<150)
[2020-03-29 12:33] LABS: MALB URINE SIEMENS 11.9 MG/L
== END ==
LOC: M LAB REF 09:20
PROVIDERS: ATTEND Nurse Practitioner Adult Health
DX: E11.9 Type 2 diabetes mellitus without complications (principal)

== ENCOUNTER → 2020-03-30 | Outpatient (REF) | payer MEDICARE, MEDICAID ==
[2020-03-30 17:58] LABS: BASO % 0.5 % (0.0-1.0); EOS # 0.1 10^3/uL (0.0-0.5); EOS % 1.4 % (0.0-3.0); HEMATOCRIT 45.4 % (42.0-52.0); HEMOGLOBIN 14.9 g/dl (13.5-17.5); LYMPH # 2.5 10^3/uL (1.5-5.0); LYMPH % 29.2 % (24.0-44.0); MEAN CORPUSCULAR HEMOGLOBIN 30.8 pg (27.0-33.0); MEAN CORPUSCULAR HGB CONC 32.8 g/dl (32.0-36.5); MONO # 0.7 10^3/uL (0.0-0.8); NEUTROPHILS # 5.1 10^3/uL (1.5-8.5); NEUTROPHILS % 60.4 % (36.0-66.0); PLATELET COUNT, AUTOMATED 250 10^3/uL (150-450); RED BLOOD COUNT 4.83 10^6/uL (4.30-6.10); WHITE BLOOD COUNT 8.5 10^3/uL (4.0-10.0)
[2020-03-30 18:12] LABS: ALBUMIN 4.2 GM/DL (3.2-5.2); ALT/SGPT 36 U/L (12-78); BILIRUBIN,TOTAL 1.5 MG/DL (0.2-1.0); BLOOD UREA NITROGEN 14 MG/DL (7-18); CALCIUM LEVEL 9.1 MG/DL (8.5-10.1); CARBON DIOXIDE LEVEL 26 MEQ/L (21-32); CHLORIDE LEVEL 106 MEQ/L (98-107); CHOLESTEROL LEVEL 161 MG/DL (<200); CHOLESTEROL RISK RATIO 4.351 (<5); GLOMERULAR FILTRATION RATE > 60.0 (>60); GLUCOSE, FASTING 86 MG/DL (70-100); HDL CHOLESTEROL 37 MG/DL (>40); LDL CHOLESTEROL 101 MG/DL (<100); NON-HDL-C 124 MG/DL; POTASSIUM SERUM 3.7 MEQ/L (3.5-5.1); SODIUM LEVEL 139 MEQ/L (136-145); TOTAL 25(OH) VITAMIN D 30.8 NG/ML (30.0-100.0); TOTAL PROTEIN 7.6 GM/DL (6.4-8.2); TRIGLYCERIDES LEVEL 116 MG/DL (<150)
[2020-03-30 18:17] LABS: HEMOGLOBIN A1c 5.5 %
== END ==
LOC: M LAB REF 17:05
PROVIDERS: ATTEND Physician Assistant
DX: E11.9 Type 2 diabetes mellitus without complications (principal); E78.5 Hyperlipidemia, unspecified; E55.9 Vitamin D deficiency, unspecified; Z79.899 Other long term (current) drug therapy

== ENCOUNTER → 2020-08-03 | Outpatient (REF) | payer MEDICARE, MEDICAID ==
[~2020-08-03] MED LIST changes: +HYDR-3490 PO; -HYDR25TAB PO; +LISI10TA22 PO; -LISI10TA4 PO
[2020-08-03 17:29] LABS: HEMOGLOBIN A1c 5.7 %
[2020-08-03 17:48] LABS: BLOOD UREA NITROGEN 17 MG/DL (7-18); CARBON DIOXIDE LEVEL 29 MEQ/L (21-32); CHLORIDE LEVEL 107 MEQ/L (98-107); CREATININE FOR GFR 0.78 MG/DL (0.70-1.30); GLOMERULAR FILTRATION RATE > 60.0 (>60); GLUCOSE, FASTING 92 MG/DL (70-100); POTASSIUM SERUM 4.2 MEQ/L (3.5-5.1); SODIUM LEVEL 141 MEQ/L (136-145)
[2020-08-03 17:49] LABS: ALBUMIN 4.2 GM/DL (3.2-5.2); ALT/SGPT 33 U/L (12-78); BILIRUBIN,TOTAL 0.9 MG/DL (0.2-1.0); CALCIUM LEVEL 9.1 MG/DL (8.5-10.1); TOTAL PROTEIN 7.1 GM/DL (6.4-8.2)
== END ==
LOC: M LAB REF 16:10
PROVIDERS: ATTEND Nurse Practitioner Adult Health
DX: E11.9 Type 2 diabetes mellitus without complications (principal)

== ENCOUNTER → 2020-11-02 | Outpatient (REF) | payer MEDICARE, MEDICAID ==
[2020-11-02 18:00] LABS: MALB URINE SIEMENS 65.3 MG/L; MAU/CREAT RATIO 26.7 MCG/MG (0.0-30.0)
== END ==
LOC: M LAB REF 16:33
PROVIDERS: ATTEND Physician Assistant
DX: E11.9 Type 2 diabetes mellitus without complications (principal)

== ENCOUNTER → 2020-11-02 | Outpatient (REF) | payer MEDICARE, MEDICAID ==
[2020-11-02 17:51] LABS: ALBUMIN 4.3 GM/DL (3.2-5.2); ALT/SGPT 30 U/L (12-78); BILIRUBIN,TOTAL 0.6 MG/DL (0.2-1.0); BLOOD UREA NITROGEN 12 MG/DL (7-18); CALCIUM LEVEL 9.4 MG/DL (8.5-10.1); CARBON DIOXIDE LEVEL 29 MEQ/L (21-32); CHLORIDE LEVEL 106 MEQ/L (98-107); CHOLESTEROL LEVEL 180 MG/DL (<200); CREATININE FOR GFR 0.77 MG/DL (0.70-1.30); GLOMERULAR FILTRATION RATE > 60.0 (>60); GLUCOSE, FASTING 119 MG/DL (70-100); HDL CHOLESTEROL 45 MG/DL (>40); LDL CHOLESTEROL 118 MG/DL (<100); NON-HDL-C 135 MG/DL; POTASSIUM SERUM 4.1 MEQ/L (3.5-5.1); SODIUM LEVEL 140 MEQ/L (136-145); TOTAL PROTEIN 7.8 GM/DL (6.4-8.2); TRIGLYCERIDES LEVEL 87 MG/DL (<150)
[2020-11-02 18:00] LABS: MALB URINE SIEMENS 65.3 MG/L; MAU/CREAT RATIO 26.7 MCG/MG (0.0-30.0)
[2020-11-02 18:31] LABS: HEPATITIS C VIRUS ABY INDEX < 0.0 INDEX (<0.8); HIV 1&2 SCREEN CENTAUR NEGATIVE (NEGATIVE)
[2020-11-02 18:54] LABS: HEMOGLOBIN A1c 5.5 %
== END ==
LOC: M LAB REF 16:24
PROVIDERS: ATTEND Physician Assistant
DX: E11.9 Type 2 diabetes mellitus without complications (principal); Z11.59 Encounter for screening for other viral diseases; Z11.4 Encounter for screening for human immunodeficiency virus [HIV]

== ENCOUNTER → 2021-03-03 | Outpatient (CLI) | payer MEDICARE, MEDICAID ==
--- NOTE | 2021-03-06 16:03 | SLEEPCENT ---
DATE: 03/03/2021 ORDERED BY: BENJI Burden Nocturnal polysomnography was performed for evaluation of sleep physiology in this patient with a history of excessive somnolence and nonrestorative sleep. Nine hours and 5 minutes of data were reviewed. There were 5 hours and 21.5 minutes of sleep identified. Sleep latency was short at 3 minutes. REM latency was normal at 97 minutes. Sleep architecture was fairly well preserved. There were four REM cycles noted. Overall sleep efficiency was 97.6%. The electrocardiogram showed a sinus rhythm with an average heart rate of 55 beats per minute. EEG showed normal waveforms for wake and sleep. There were 470 respiratory events identified of 10 seconds in duration or greater for an apnea-hypopnea index of 54.1. The events were primarily obstructive, 21 mixed and central apneas were noted. Respiratory events were not exclusive to sleep stage, more frequent but not exclusive to the supine posture. Arousals from respiratory events occurred 11.7 times per hour and remaining measures of sleep physiology were normal. IMPRESSION: Severe obstructive sleep apnea syndrome (G47.33). Apnea-hypopnea index 54.1. RECOMMENDATION: The patient should be encouraged to return to [facility]. In the interim, alcohol and sedative avoidance should be practiced and caution exercised during the operation of motor vehicles. cc: BENJI Rao
== END ==
LOC: M SLEEP 20:00
PROVIDERS: ATTEND Physician Assistant
DX: G47.33 Obstructive sleep apnea (adult) (pediatric) (principal)

== ENCOUNTER → 2021-04-25 | Outpatient (CLI) | payer MEDICARE, MEDICAID ==
--- NOTE | 2021-04-25 14:59 | REP ---
INDICATION: HX ALCOHOL ABUSE. COMPARISON: Right upper quadrant exam of 07/18/2018 TECHNIQUE: Real-time sonographic evaluation of the right upper quadrant with Doppler FINDINGS: Once again, diffuse increased echoes are seen throughout the hepatic parenchyma with very poor sonographic beam penetration status quo. There is no evidence of gross intrahepatic or extrahepatic ductal dilatation. Common bile duct measures between 6 and 7 mm. The pancreas was seen in a markedly limited exam due to the patient's intestinal gas pattern. No gross abnormality was seen involving the imaged portion of the right kidney. IMPRESSION: The examination is limited as described above. Very poor sonographic beam penetration through the liver. Fatty infiltration versus cirrhosis. Overall, there does not appear to be a significant change when compared to the prior exam which is also seen limited. <Electronically signed by Roman Rodrigez > 04/25/21 [id number]
== END ==
LOC: M RAD 08:13
PROVIDERS: ATTEND Pediatrics
DX: F10.11 Alcohol abuse, in remission (principal)

== ENCOUNTER → 2021-04-28 | Outpatient (CLI) | payer MEDICARE, MEDICAID | LOC: M SLEEP 20:00 | PROVIDERS: ATTEND Physician Assistant | DX: G47.33 Obstructive sleep apnea (adult) (pediatric) (principal) ==

== ENCOUNTER 2021-09-30 09:14 | Emergency (ER) | payer MEDICARE, MEDICAID ==
[~2021-09-30] VITALS: Ht 165.1 cm; Wt 118.2 kg
[2021-09-30] MEDS ORDERED: ACETAMINOPHEN 500 MG TAB PO ONE (10:10)
[2021-09-30] MEDS ORDERED: ONDANSETRON 4MG/2ML VIAL IV ONE (10:10)
[2021-09-30 10:47] LABS: BASO % 0.1 % (0.0-1.0); EOS % 0.2 % (0.0-3.0); HEMATOCRIT 42.4 % (42.0-52.0); HEMOGLOBIN 14.4 g/dl (13.5-17.5); LYMPH # 0.8 10^3/uL (1.5-5.0); LYMPH % 6.1 % (24.0-44.0); MEAN CORPUSCULAR VOLUME 91.2 fl (80.0-96.0); MONO # 1.1 10^3/uL (0.0-0.8); MONO % 7.7 % (2.0-8.0); NEUTROPHILS # 11.8 10^3/uL (1.5-8.5); NEUTROPHILS % 85.3 % (36.0-66.0); PLATELET COUNT, AUTOMATED 223 10^3/uL (150-450); RED BLOOD COUNT 4.65 10^6/uL (4.30-6.10); WHITE BLOOD COUNT 13.8 10^3/uL (4.0-10.0)
[2021-09-30 11:12] LABS: ALBUMIN 4.3 GM/DL (3.2-5.2); ALT/SGPT 59 U/L (12-78); BILIRUBIN,DIRECT 0.2 MG/DL (0.0-0.2); BILIRUBIN,TOTAL 1.2 MG/DL (0.2-1.0); BLOOD UREA NITROGEN 13 MG/DL (7-18); CALCIUM LEVEL 9.2 MG/DL (8.5-10.1); CARBON DIOXIDE LEVEL 24 MEQ/L (21-32); CHLORIDE LEVEL 109 MEQ/L (98-107); CREATININE FOR GFR 1.01 MG/DL (0.70-1.30); GLOMERULAR FILTRATION RATE > 60.0 (>60); GLUCOSE, FASTING 137 MG/DL (70-100); LIPASE 95 U/L (73-393); POTASSIUM SERUM 3.9 MEQ/L (3.5-5.1); SODIUM LEVEL 141 MEQ/L (136-145); TOTAL PROTEIN 7.5 GM/DL (6.4-8.2)
[2021-09-30] MEDS ORDERED: ISOVUE-370 76% 100ML VIAL As Ordered ONE (12:12)
[2021-09-30] MEDS ORDERED: FLOM0.4C39 PO (14:00)
[2021-09-30 14:08] VITALS: BP 132/70
== END 2021-09-30 14:11 | disposition home or self-care (01) ==
LOC: EDBD 09:14 → M ED 09:14
DX: N20.1 Calculus of ureter (principal); E11.9 Type 2 diabetes mellitus without complications; I10 Essential (primary) hypertension; F17.200 Nicotine dependence, unspecified, uncomplicated; Z79.84 Long term (current) use of oral hypoglycemic drugs
CPT/HCPCS: 72110; 74177; 80048; 80076; 81001; 83690; 85025; 99284; J2405; Q9967

== ENCOUNTER → 2022-02-14 | Outpatient (CLI) | payer MEDICARE, MEDICAID ==
[~2022-02-14] MED LIST changes: +FLOM0.4C39 PO
== END ==
LOC: M PLAIMG 12:17
PROVIDERS: ATTEND Nurse Practitioner Women's Health
DX: N13.2 Hydronephrosis with renal and ureteral calculous obstruction (principal); R10.9 Unspecified abdominal pain

== ENCOUNTER → 2022-05-08 | Outpatient (REF) | payer MEDICARE, MEDICAID | LOC: M LAB REF 16:43 | PROVIDERS: ATTEND Physician Assistant | DX: L90.5 Scar conditions and fibrosis of skin (principal) ==

== ENCOUNTER 2022-09-21 08:38 | Emergency (ER) | payer MEDICARE, MEDICAID, OTHER ==
[~2022-09-21] VITALS: Ht 167.6 cm; Wt 107.6 kg
[2022-09-21] MEDS ORDERED: AUGMENTIN 875 MG TAB PO ONE (11:05)
[2022-09-21] MEDS ORDERED: BOOSTRIX/ADACEL VACCINE (DIPHTH/PERTUSS/ACELL/TETANUS) 0.5ML SYR IM ONE (11:05)
[2022-09-21] MEDS ORDERED: ACETAMINOPHEN 500 MG TAB PO ONE (11:05)
[2022-09-21] MEDS ORDERED: AMOX875T2 PO (13:55)
[2022-09-21 14:13] VITALS: BP 156/79
== END 2022-09-21 14:25 | disposition home or self-care (01) ==
LOC: M ED 08:38
DX: S01.431A Puncture wound without foreign body of right cheek and temporomandibular area, initial encounter (principal); W54.0XXA Bitten by dog, initial encounter; Y92.009 Unspecified place in unspecified non-institutional (private) residence as the place of occurrence of the external cause; Y93.K9 Activity, other involving animal care; Y99.8 Other external cause status; I10 Essential (primary) hypertension; G47.33 Obstructive sleep apnea (adult) (pediatric); F10.10 Alcohol abuse, uncomplicated; E11.9 Type 2 diabetes mellitus without complications; Z79.84 Long term (current) use of oral hypoglycemic drugs; M54.9 Dorsalgia, unspecified

== ENCOUNTER → 2023-01-31 | Day surgery (SDC) | payer MEDICARE, MEDICAID ==
[~2023-01-31] VITALS: Ht 162.6 cm; Wt 102.0 kg
[~2023-01-31] MED LIST changes: +AMOX875T2 PO; +LIDOCAINE 2% 100MG/5ML SDV (FOR ANES.) As Ordered ONE; +NALT50TA4 PO; +NS 1,000 ML IV ONE; +propofoL 200 MG/20 ML VIAL As Ordered ONE
[2023-01-31 11:21] VITALS: TEMP 96.3
[2023-01-31 11:43] VITALS: BP 139/98; O2SAT 100
== END | disposition home or self-care (01) ==
LOC: M OPP 09:39
PROVIDERS: ATTEND Surgery
DX: Z12.11 Encounter for screening for malignant neoplasm of colon (principal); Z87.891 Personal history of nicotine dependence; Z88.8 Allergy status to other drugs, medicaments and biological substances; Z79.899 Other long term (current) drug therapy

== ENCOUNTER → 2023-04-10 | Outpatient (REF) | payer MEDICARE ==
[~2023-04-10] MED LIST changes: -LIDOCAINE 2% 100MG/5ML SDV (FOR ANES.) As Ordered ONE; +MECL-209 PO; -MECL1TAB31 PO; -NS 1,000 ML IV ONE; -propofoL 200 MG/20 ML VIAL As Ordered ONE
[2023-04-10 18:05] LABS: ALBUMIN 3.8 G/DL (3.2-5.2); ALKALINE PHOSPHATASE 86 U/L (46-116); ALT/SGPT 11 U/L (7.0-40); AST/SGOT 10 U/L (<34); BILIRUBIN,TOTAL 0.2 MG/DL (0.3-1.2); BLOOD UREA NITROGEN 20 MG/DL (9-23); CALCIUM LEVEL 9.2 MG/DL (8.5-10.1); CARBON DIOXIDE LEVEL 29 MMOL/L (20-31); CHLORIDE LEVEL 108 MMOL/L (98-107); CHOLESTEROL LEVEL 134 MG/DL (<200); CHOLESTEROL RISK RATIO 3.04 (<5); CREATININE FOR GFR 0.72 MG/DL (0.70-1.30); GLOMERULAR FILTRATION RATE > 60.0 (>60); GLUCOSE, FASTING 97 MG/DL (60-100); LDL CHOLESTEROL 62.8 MG/DL (<100); POTASSIUM SERUM 4.2 MMOL/L (3.5-5.1); SODIUM LEVEL 143 MMOL/L (136-145); TOTAL 25(OH) VITAMIN D 30.2 NG/ML (20.0-100.0); TOTAL PROTEIN 6.4 G/DL (5.7-8.2); TRIGLYCERIDES LEVEL 136 MG/DL (<150)
[2023-04-10 18:40] LABS: HEMOGLOBIN A1c 5.4 % (4.0-6.0)
== END ==
LOC: M LAB REF 16:25
PROVIDERS: ATTEND Pediatrics
DX: R73.03 Prediabetes (principal); E55.9 Vitamin D deficiency, unspecified; K76.0 Fatty (change of) liver, not elsewhere classified

== ENCOUNTER → 2024-02-04 | Outpatient (REF) | payer MEDICARE, MEDICAID | LOC: M LAB REF 12:31 | PROVIDERS: ATTEND Pediatrics | DX: R03.0 Elevated blood-pressure reading, without diagnosis of hypertension (principal) ==

== ENCOUNTER → 2024-02-05 | Outpatient (REF) | payer MEDICARE, MEDICAID ==
[2024-02-05 14:01] LABS: BLOOD UREA NITROGEN 11 MG/DL (9-23); CARBON DIOXIDE LEVEL 29 MMOL/L (20-31); CHLORIDE LEVEL 104 MMOL/L (98-107); CHOLESTEROL LEVEL 187 MG/DL (<200); CREATININE FOR GFR 0.75 MG/DL (0.70-1.30); GLOMERULAR FILTRATION RATE > 60.0 (>60); GLUCOSE, FASTING 105 MG/DL (60-100); HDL CHOLESTEROL 38.9 MG/DL (>40); LDL CHOLESTEROL 110.5 MG/DL (<100); NON-HDL-C 148.1 MG/DL; SODIUM LEVEL 142 MMOL/L (136-145); TRIGLYCERIDES LEVEL 188 MG/DL (<150)
[2024-02-05 14:04] LABS: THYROID STIMULATING HORMONE 3.895 uIU/ML (0.55-4.78)
[2024-02-05 14:29] LABS: HEMOGLOBIN A1c 5.4 % (4.0-6.0)
== END ==
LOC: M LAB REF 13:06
PROVIDERS: ATTEND Pediatrics
DX: K76.0 Fatty (change of) liver, not elsewhere classified (principal); R03.0 Elevated blood-pressure reading, without diagnosis of hypertension; Z68.37 Body mass index [BMI] 37.0-37.9, adult; E07.9 Disorder of thyroid, unspecified

== ENCOUNTER 2024-08-04 09:01 | Emergency (ER) | payer MEDICARE, MEDICAID ==
[~2024-08-04] VITALS: Ht 162.6 cm; Wt 103.0 kg
[2024-08-04] MEDS: ONDANSETRON 4MG ORAL DISINTEGRATING TAB PO ONE (11:58)
[2024-08-04] MEDS: IPRATROPIUM 0.5MG/ALBUTEROL 2.5MG INH SOL UD 3ML (DUONEB) NEB ONE (12:05)
[2024-08-04] MEDS ORDERED: ONDA-282 PO (12:43)
[2024-08-04 13:40] VITALS: BP 136/81; TEMP 98.6; O2SAT 93
== END 2024-08-04 13:43 | disposition home or self-care (01) ==
LOC: M ED 09:01
DX: J09.X2 Influenza due to identified novel influenza A virus with other respiratory manifestations (principal); I10 Essential (primary) hypertension; J45.909 Unspecified asthma, uncomplicated; Z79.899 Other long term (current) drug therapy

== ENCOUNTER → 2024-09-08 | Outpatient (REF) | payer MEDICARE, MEDICAID ==
[~2024-09-08] MED LIST changes: +ONDA-282 PO
[2024-09-08 20:58] LABS: THYROID STIMULATING HORMONE 2.746 uIU/ML (0.55-4.78)
[2024-09-08 21:22] LABS: HEMOGLOBIN A1c 5.3 % (4.0-6.0)
[2024-09-08 21:40] LABS: BILIRUBIN,DIRECT 0.1 MG/DL (<0.4); BILIRUBIN,TOTAL 0.3 MG/DL (0.3-1.2); TOTAL PROTEIN 7.1 G/DL (5.7-8.2)
== END ==
LOC: M LAB REF 18:11
PROVIDERS: ATTEND Pediatrics
DX: K76.0 Fatty (change of) liver, not elsewhere classified (principal); E66.01 Morbid (severe) obesity due to excess calories; E07.9 Disorder of thyroid, unspecified

== ENCOUNTER → 2025-04-23 | Outpatient (CLI) | payer MEDICARE, MEDICAID ==
[~2025-04-23] MED LIST changes: -FLOM0.4C39 PO; -IBUP-1022 PO; +IBUP600T42 PO; +TAMS-18 PO
[2025-04-23 15:09] LABS: PLATELET COUNT, AUTOMATED 220 10^3/uL (150-450)
[2025-04-23 15:23] LABS: ALT/SGPT 14 U/L (7.0-40); AST/SGOT 12 U/L (<34); CALCIUM LEVEL 9.0 MG/DL (8.5-10.1); CARBON DIOXIDE LEVEL 28 MMOL/L (20-31); CHLORIDE LEVEL 108 MMOL/L (98-107); CREATININE FOR GFR 0.78 MG/DL (0.70-1.30); GLOMERULAR FILTRATION RATE > 90.0 (>56); POTASSIUM SERUM 4.2 MMOL/L (3.5-5.1); SODIUM LEVEL 145 MMOL/L (136-145)
[2025-04-23 15:25] LABS: FREE T4 0.96 NG/DL (0.89-1.76)
== END ==
LOC: M LAB 14:17
PROVIDERS: ATTEND Nurse Practitioner Family
DX: F32.89 Other specified depressive episodes (principal)